=== PATIENT | male | born 1990 | race Caucasian/White ===

== ENCOUNTER 2017-11-28 06:09 | Emergency (ER) | payer SELFPAY ==
[~2017-11-28] VITALS: Ht 172.7 cm; Wt 71.1 kg
[2017-11-28 06:10] VITALS: BP 103/68
== END 2017-11-28 08:08 | disposition home or self-care (01) ==
LOC: ED 07:40
DX: S93.492A Sprain of other ligament of left ankle, initial encounter (principal); F17.200 Nicotine dependence, unspecified, uncomplicated; X50.1XXA Overexertion from prolonged static or awkward postures, initial encounter; Y93.89 Activity, other specified; Y99.8 Other external cause status; Y92.89 Other specified places as the place of occurrence of the external cause
CPT/HCPCS: 99284